=== PATIENT | male | born 1960 | race Two or more races ===

== ENCOUNTER → 2023-04-15 | Outpatient (CLI) | payer MEDICARE | LOC: M SLEEP 12:04 | PROVIDERS: ATTEND Family Medicine | DX: R55 Syncope and collapse (principal); R94.31 Abnormal electrocardiogram [ECG] [EKG] ==

== ENCOUNTER 2023-08-25 18:25 | Observation (INO) | payer MEDICAID, MEDICARE ==
[~2023-08-25] VITALS: Ht 188 cm; Wt 77.6 kg
[2023-08-25 19:38] LABS: BASO % 0.5 % (0.0-1.0); EOS % 0.7 % (0.0-3.0); HEMATOCRIT 38.9 % (42.0-52.0); HEMOGLOBIN 13.7 g/dl (13.5-17.5); LYMPH # 1.6 10^3/uL (1.5-5.0); LYMPH % 26.4 % (24.0-44.0); MEAN CORPUSCULAR HEMOGLOBIN 31.5 pg (27.0-33.0); MEAN CORPUSCULAR HGB CONC 35.2 g/dl (32.0-36.5); MEAN CORPUSCULAR VOLUME 89.4 fl (80.0-96.0); MONO # 0.5 10^3/uL (0.0-0.8); MONO % 8.3 % (2.0-8.0); NEUTROPHILS # 3.8 10^3/uL (1.5-8.5); NEUTROPHILS % 63.4 % (36.0-66.0); PLATELET COUNT, AUTOMATED 201 10^3/uL (150-450); RED BLOOD COUNT 4.35 10^6/uL (4.30-6.10)
[2023-08-25 19:50] LABS: CK-MB VALUE MASS 1.9 NG/ML (<3.6)
[2023-08-25 19:53] LABS: ALBUMIN 3.6 G/DL (3.2-5.2); ALKALINE PHOSPHATASE 72 U/L (46-116); ALT/SGPT 54 U/L (7.0-40); AST/SGOT 22 U/L (<34); BILIRUBIN,TOTAL 2.1 MG/DL (0.3-1.2); BLOOD UREA NITROGEN 16 MG/DL (9-23); CALCIUM LEVEL 9.4 MG/DL (8.3-10.6); CARBON DIOXIDE LEVEL 29 MMOL/L (20-31); CHLORIDE LEVEL 92 MMOL/L (98-107); CPK CREATINE PHOSPHOKINASE 102 U/L (46-171); CREATININE FOR GFR 0.69 MG/DL (0.70-1.30); GLOMERULAR FILTRATION RATE > 60.0 (>49); GLUCOSE, FASTING 173 MG/DL (74-106); MB/CK RELATIVE INDEX 1.86 (< OR =4); SODIUM LEVEL 126 MMOL/L (136-145); THYROID STIMULATING HORMONE 1.819 uIU/ML (0.55-4.78); TOTAL PROTEIN 6.7 G/DL (5.7-8.2)
[2023-08-26] MEDS ORDERED: NS 1,000 ML IV ONE (06:35)
[2023-08-26 06:51] LABS: AMPHETAMINES LEVEL URINE NEGATIVE (NEGATIVE); BARBITURATES URINE NEGATIVE (NEGATIVE); BENZODIAZEPINES URINE NEGATIVE (NEGATIVE); COCAINE METABOLITE URINE NEGATIVE (NEGATIVE)
[2023-08-26 06:52] LABS: CANNABINOIDS URINE NEGATIVE (NEGATIVE); METHADONE URINE NEGATIVE (NEGATIVE); OPIATES URINE NEGATIVE (NEGATIVE); PHENCYCLIDINE URINE NEGATIVE (NEGATIVE)
[2023-08-26] MEDS ORDERED: MED REC IN PROGRESS XX SCH (08:10)
[2023-08-26] MEDS ORDERED: VITA100093 PO (09:45)
[2023-08-26] MEDS ORDERED: TAMS1CAP17 PO (09:45)
[2023-08-26] MEDS ORDERED: ATOR1TAB19 PO (09:45)
[2023-08-26] MEDS ORDERED: HALOPERIDOL DECANOATE 100 MG/ML 1ML VIAL IM ONE (09:45)
[2023-08-26] MEDS ORDERED: TRAZ-257 PO (09:45)
[2023-08-26] MEDS ORDERED: HALO10AM IM (09:45)
[2023-08-26] MEDS ORDERED: LISI5TAB11 PO (09:45)
[2023-08-26] MEDS ORDERED: DIVA500T9 PO (09:45)
[2023-08-26] MEDS: ENOXAPARIN 40MG/0.4ML SYRINGE (J1650 PER 10MG) SC SCH (11:43)
[2023-08-26 12:17] LABS: BLOOD UREA NITROGEN 10 MG/DL (9-23); CALCIUM LEVEL 9.5 MG/DL (8.3-10.6); CARBON DIOXIDE LEVEL 24 MMOL/L (20-31); CHLORIDE LEVEL 101 MMOL/L (98-107); CREATININE FOR GFR 0.51 MG/DL (0.70-1.30); GLOMERULAR FILTRATION RATE > 60.0 (>49); GLUCOSE, FASTING 94 MG/DL (74-106); MAGNESIUM LEVEL 1.8 MG/DL (1.8-2.4); POTASSIUM SERUM 3.8 MMOL/L (3.5-5.1); SODIUM LEVEL 132 MMOL/L (136-145)
[2023-08-26 13:01] LABS: URIC ACID 4.8 MG/DL (3.7-9.2)
[2023-08-26 13:39] LABS: OSMOLALITY SERUM 265 MOSM/KG (280-301)
[2023-08-26 14:34] VITALS: BP 142/75; TEMP 97.5; O2SAT 100
[2023-08-26] MEDS ORDERED: CHOL50002 PO (15:08)
[2023-08-26] MEDS ORDERED: HOME MED LIST COMPLETE! XX SCH (15:10)
[2023-08-26] MEDS: ACETAMINOPHEN TAB 650MG DOSE (2X325MG) PO PRN (16:42)
[2023-08-26 18:00] LABS: BLOOD UREA NITROGEN 9 MG/DL (9-23); CALCIUM LEVEL 9.6 MG/DL (8.3-10.6); CARBON DIOXIDE LEVEL 26 MMOL/L (20-31); CHLORIDE LEVEL 100 MMOL/L (98-107); CREATININE FOR GFR 0.51 MG/DL (0.70-1.30); GLOMERULAR FILTRATION RATE > 60.0 (>49); GLUCOSE, FASTING 109 MG/DL (74-106); POTASSIUM SERUM 3.9 MMOL/L (3.5-5.1); SODIUM LEVEL 133 MMOL/L (136-145)
[2023-08-26 20:02] VITALS: BP 132/77; TEMP 98.6; O2SAT 99
[2023-08-26] MEDS: DIVALPROEX 500MG *ER* TAB PO SCH (20:54)
[2023-08-26] MEDS: traZODone 100 MG TAB PO SCH (20:54)
[2023-08-26] MEDS: TAMSULOSIN 0.4 MG CAP PO SCH (20:54)
[2023-08-26 23:34] LABS: BLOOD UREA NITROGEN 11 MG/DL (9-23); CALCIUM LEVEL 8.9 MG/DL (8.3-10.6); CARBON DIOXIDE LEVEL 23 MMOL/L (20-31); CHLORIDE LEVEL 101 MMOL/L (98-107); CREATININE FOR GFR 0.49 MG/DL (0.70-1.30); GLOMERULAR FILTRATION RATE > 60.0 (>49); GLUCOSE, FASTING 132 MG/DL (74-106); POTASSIUM SERUM 4.1 MMOL/L (3.5-5.1); SODIUM LEVEL 132 MMOL/L (136-145)
[2023-08-27 05:12] VITALS: BP 122/72; TEMP 98.6; O2SAT 100
[2023-08-27] MEDS: TAMSULOSIN 0.4 MG CAP PO SCH ×2 (09:05→20:15)
[2023-08-27] MEDS: ACETAMINOPHEN TAB 650MG DOSE (2X325MG) PO PRN ×2 (09:05→19:34)
[2023-08-27] MEDS: ATORVASTATIN 10 MG TAB PO SCH (09:05)
[2023-08-27] MEDS: DIVALPROEX 500MG *ER* TAB PO SCH ×2 (09:07→20:15)
[2023-08-27] MEDS: lisinopriL 5 MG TAB PO SCH (09:07)
[2023-08-27] MEDS: ENOXAPARIN 40MG/0.4ML SYRINGE (J1650 PER 10MG) SC SCH (09:07)
[2023-08-27 14:00] VITALS: BP 92/44; TEMP 98.8; O2SAT 99
[2023-08-27] MEDS ORDERED: NS 1,000 ML IV ONE (15:00)
[2023-08-27 19:30] VITALS: O2SAT 99
[2023-08-27 19:34] VITALS: BP 121/85; TEMP 97.9
[2023-08-27] MEDS: traZODone 100 MG TAB PO SCH (20:15)
[2023-08-28 05:07] VITALS: BP 126/67; TEMP 98.6; O2SAT 100
[2023-08-28 07:41] LABS: BLOOD UREA NITROGEN 11 MG/DL (9-23); CALCIUM LEVEL 8.5 MG/DL (8.3-10.6); CARBON DIOXIDE LEVEL 26 MMOL/L (20-31); CHLORIDE LEVEL 101 MMOL/L (98-107); CREATININE FOR GFR 0.62 MG/DL (0.70-1.30); GLOMERULAR FILTRATION RATE > 60.0 (>49); GLUCOSE, FASTING 96 MG/DL (74-106); MAGNESIUM LEVEL 1.7 MG/DL (1.8-2.4); POTASSIUM SERUM 3.9 MMOL/L (3.5-5.1); SODIUM LEVEL 133 MMOL/L (136-145)
[2023-08-28] MEDS: DIVALPROEX 500MG *ER* TAB PO SCH ×2 (08:17→19:51)
[2023-08-28] MEDS: ATORVASTATIN 10 MG TAB PO SCH (08:18)
[2023-08-28] MEDS: TAMSULOSIN 0.4 MG CAP PO SCH ×2 (08:18→19:51)
[2023-08-28] MEDS: ENOXAPARIN 40MG/0.4ML SYRINGE (J1650 PER 10MG) SC SCH (08:19)
[2023-08-28] MEDS: lisinopriL 5 MG TAB PO SCH (08:19)
[2023-08-28] MEDS: MAGNESIUM OXIDE 400MG TAB (MAG-OX) PO SCH (10:11)
[2023-08-28] MEDS ORDERED: HALOPERIDOL DECANOATE 100 MG/ML 1ML VIAL IM SCH (12:35)
[2023-08-28 14:00] VITALS: BP 126/71; TEMP 98.2; O2SAT 100
[2023-08-28 14:08] VITALS: BP 123/71; TEMP 98.4; O2SAT 98
[2023-08-28] MEDS: traZODone 100 MG TAB PO SCH (19:50)
[2023-08-28 20:46] VITALS: BP 115/70; TEMP 98.4; O2SAT 97
[2023-08-29 05:28] VITALS: BP 113/64; TEMP 98.1; O2SAT 98
[2023-08-29 06:31] LABS: BLOOD UREA NITROGEN 7 MG/DL (9-23); CALCIUM LEVEL 8.3 MG/DL (8.3-10.6); CARBON DIOXIDE LEVEL 28 MMOL/L (20-31); CHLORIDE LEVEL 101 MMOL/L (98-107); CREATININE FOR GFR 0.63 MG/DL (0.70-1.30); GLOMERULAR FILTRATION RATE > 60.0 (>49); GLUCOSE, FASTING 95 MG/DL (74-106); MAGNESIUM LEVEL 1.8 MG/DL (1.8-2.4); POTASSIUM SERUM 4.1 MMOL/L (3.5-5.1); SODIUM LEVEL 133 MMOL/L (136-145)
[2023-08-29] MEDS: TAMSULOSIN 0.4 MG CAP PO SCH ×2 (09:38→20:43)
[2023-08-29] MEDS: ENOXAPARIN 40MG/0.4ML SYRINGE (J1650 PER 10MG) SC SCH (09:38)
[2023-08-29] MEDS: ATORVASTATIN 10 MG TAB PO SCH (09:38)
[2023-08-29] MEDS: DIVALPROEX 500MG *ER* TAB PO SCH ×2 (09:39→20:42)
[2023-08-29] MEDS: MAGNESIUM OXIDE 400MG TAB (MAG-OX) PO SCH (09:39)
[2023-08-29] MEDS: lisinopriL 5 MG TAB PO SCH (09:39)
[2023-08-29] MEDS: ACETAMINOPHEN TAB 650MG DOSE (2X325MG) PO PRN (13:26)
[2023-08-29 14:00] VITALS: BP_SYST 125; BP_SYST 137; BP_DIAS 61; BP_DIAS 78; TEMP 97.9; TEMP 98.4; O2SAT 96; O2SAT 99
[2023-08-29] MEDS: MOM 30ML SUSPENSION UDC PO PRN (16:29)
[2023-08-29] MEDS: traZODone 100 MG TAB PO SCH (20:43)
[2023-08-29 21:00] VITALS: BP 128/74; TEMP 98.4; O2SAT 96
[2023-08-30 05:01] VITALS: BP 130/76; TEMP 97.9; O2SAT 99
[2023-08-30 06:43] LABS: BLOOD UREA NITROGEN 8 MG/DL (9-23); CARBON DIOXIDE LEVEL 30 MMOL/L (20-31); CHLORIDE LEVEL 102 MMOL/L (98-107); CREATININE FOR GFR 0.63 MG/DL (0.70-1.30); GLOMERULAR FILTRATION RATE > 60.0 (>49); GLUCOSE, FASTING 94 MG/DL (74-106); MAGNESIUM LEVEL 1.8 MG/DL (1.8-2.4); POTASSIUM SERUM 4.6 MMOL/L (3.5-5.1); SODIUM LEVEL 136 MMOL/L (136-145)
[2023-08-30 07:00] VITALS: BP 133/77; TEMP 97.9; O2SAT 99
[2023-08-30] MEDS: ATORVASTATIN 10 MG TAB PO SCH (08:15)
[2023-08-30] MEDS: ENOXAPARIN 40MG/0.4ML SYRINGE (J1650 PER 10MG) SC SCH (08:15)
[2023-08-30] MEDS: TAMSULOSIN 0.4 MG CAP PO SCH ×2 (08:15→20:41)
[2023-08-30] MEDS: lisinopriL 5 MG TAB PO SCH (08:16)
[2023-08-30] MEDS: MAGNESIUM OXIDE 400MG TAB (MAG-OX) PO SCH (08:16)
[2023-08-30] MEDS: DIVALPROEX 500MG *ER* TAB PO SCH ×2 (08:17→20:41)
[2023-08-30 14:00] VITALS: BP 137/78; TEMP 97.9; O2SAT 99
[2023-08-30 19:47] VITALS: BP 145/75; TEMP 98.1; O2SAT 99
[2023-08-30] MEDS: traZODone 100 MG TAB PO SCH (20:42)
[2023-08-31 05:12] VITALS: BP 142/77; TEMP 98.2; O2SAT 98
[2023-08-31 05:17] VITALS: BP 159/77; TEMP 97.5; O2SAT 94
[2023-08-31 06:52] LABS: BLOOD UREA NITROGEN 10 MG/DL (9-23); CARBON DIOXIDE LEVEL 30 MMOL/L (20-31); CHLORIDE LEVEL 102 MMOL/L (98-107); CREATININE FOR GFR 0.63 MG/DL (0.70-1.30); GLOMERULAR FILTRATION RATE > 60.0 (>49); GLUCOSE, FASTING 88 MG/DL (74-106); MAGNESIUM LEVEL 1.9 MG/DL (1.8-2.4); POTASSIUM SERUM 4.1 MMOL/L (3.5-5.1); SODIUM LEVEL 137 MMOL/L (136-145)
[2023-08-31] MEDS: ATORVASTATIN 10 MG TAB PO SCH (07:46)
[2023-08-31] MEDS: DIVALPROEX 500MG *ER* TAB PO SCH ×2 (07:47→19:56)
[2023-08-31] MEDS: TAMSULOSIN 0.4 MG CAP PO SCH ×2 (07:47→19:56)
[2023-08-31] MEDS: MAGNESIUM OXIDE 400MG TAB (MAG-OX) PO SCH (07:47)
[2023-08-31] MEDS: lisinopriL 5 MG TAB PO SCH (07:47)
[2023-08-31] MEDS: ENOXAPARIN 40MG/0.4ML SYRINGE (J1650 PER 10MG) SC SCH (07:48)
[2023-08-31 14:00] VITALS: BP 125/78; TEMP 98.2; O2SAT 99
[2023-08-31] MEDS: traZODone 100 MG TAB PO SCH (19:56)
[2023-09-01 05:15] VITALS: BP 124/74; TEMP 98.1; O2SAT 98
[2023-09-01 07:27] LABS: BLOOD UREA NITROGEN 9 MG/DL (9-23); CALCIUM LEVEL 9.1 MG/DL (8.3-10.6); CARBON DIOXIDE LEVEL 30 MMOL/L (20-31); CHLORIDE LEVEL 98 MMOL/L (98-107); CREATININE FOR GFR 0.61 MG/DL (0.70-1.30); GLOMERULAR FILTRATION RATE > 60.0 (>49); GLUCOSE, FASTING 89 MG/DL (74-106); MAGNESIUM LEVEL 1.7 MG/DL (1.8-2.4); POTASSIUM SERUM 4.4 MMOL/L (3.5-5.1); SODIUM LEVEL 131 MMOL/L (136-145)
[2023-09-01] MEDS: MAGNESIUM OXIDE 400MG TAB (MAG-OX) PO SCH (08:51)
[2023-09-01] MEDS: MAALOX 30 ML SUSP *UDC PO PRN (08:52)
[2023-09-01] MEDS: ACETAMINOPHEN TAB 650MG DOSE (2X325MG) PO PRN ×2 (08:52→15:54)
[2023-09-01] MEDS: TAMSULOSIN 0.4 MG CAP PO SCH ×2 (08:52→19:55)
[2023-09-01] MEDS: ATORVASTATIN 10 MG TAB PO SCH (08:52)
[2023-09-01] MEDS: ENOXAPARIN 40MG/0.4ML SYRINGE (J1650 PER 10MG) SC SCH (08:52)
[2023-09-01] MEDS: lisinopriL 5 MG TAB PO SCH (08:53)
[2023-09-01] MEDS: DIVALPROEX 500MG *ER* TAB PO SCH ×2 (08:53→19:55)
[2023-09-01 14:00] VITALS: BP 130/74; TEMP 98.2; O2SAT 98
[2023-09-01] MEDS: traZODone 100 MG TAB PO SCH (19:55)
[2023-09-02 06:00] VITALS: BP 133/68; TEMP 98; O2SAT 98
[2023-09-02 06:16] LABS: BLOOD UREA NITROGEN 8 MG/DL (9-23); CARBON DIOXIDE LEVEL 26 MMOL/L (20-31); CHLORIDE LEVEL 98 MMOL/L (98-107); CREATININE FOR GFR 0.51 MG/DL (0.70-1.30); GLOMERULAR FILTRATION RATE > 60.0 (>49); GLUCOSE, FASTING 93 MG/DL (74-106); MAGNESIUM LEVEL 1.7 MG/DL (1.8-2.4); POTASSIUM SERUM 4.4 MMOL/L (3.5-5.1); SODIUM LEVEL 130 MMOL/L (136-145)
[2023-09-02] MEDS: DIVALPROEX 500MG *ER* TAB PO SCH ×2 (08:22→20:02)
[2023-09-02] MEDS: TAMSULOSIN 0.4 MG CAP PO SCH ×2 (08:22→20:02)
[2023-09-02] MEDS: ATORVASTATIN 10 MG TAB PO SCH (08:23)
[2023-09-02] MEDS: lisinopriL 5 MG TAB PO SCH (08:23)
[2023-09-02] MEDS: ENOXAPARIN 40MG/0.4ML SYRINGE (J1650 PER 10MG) SC SCH (08:23)
[2023-09-02] MEDS: MAGNESIUM OXIDE 400MG TAB (MAG-OX) PO SCH (08:23)
[2023-09-02] MEDS: MOM 30ML SUSPENSION UDC PO PRN (20:02)
[2023-09-02] MEDS: traZODone 100 MG TAB PO SCH (20:02)
[2023-09-03 05:05] VITALS: BP 125/73; TEMP 98.6; O2SAT 99
[2023-09-03 06:57] LABS: BLOOD UREA NITROGEN 8 MG/DL (9-23); CALCIUM LEVEL 8.8 MG/DL (8.3-10.6); CARBON DIOXIDE LEVEL 26 MMOL/L (20-31); CHLORIDE LEVEL 96 MMOL/L (98-107); CREATININE FOR GFR 0.49 MG/DL (0.70-1.30); GLOMERULAR FILTRATION RATE > 60.0 (>49); GLUCOSE, FASTING 104 MG/DL (74-106); MAGNESIUM LEVEL 1.9 MG/DL (1.8-2.4); POTASSIUM SERUM 4.2 MMOL/L (3.5-5.1); SODIUM LEVEL 127 MMOL/L (136-145)
[2023-09-03] MEDS: TAMSULOSIN 0.4 MG CAP PO SCH ×2 (09:06→20:46)
[2023-09-03] MEDS: ATORVASTATIN 10 MG TAB PO SCH (09:06)
[2023-09-03] MEDS: MAGNESIUM OXIDE 400MG TAB (MAG-OX) PO SCH (09:06)
[2023-09-03] MEDS: DIVALPROEX 500MG *ER* TAB PO SCH ×2 (09:06→20:46)
[2023-09-03] MEDS: lisinopriL 5 MG TAB PO SCH (09:07)
[2023-09-03] MEDS: ENOXAPARIN 40MG/0.4ML SYRINGE (J1650 PER 10MG) SC SCH (09:07)
[2023-09-03 10:00] VITALS: BP 141/80; TEMP 97; O2SAT 98
[2023-09-03 13:19] LABS: BASO % 0.3 % (0.0-1.0); EOS % 0.4 % (0.0-3.0); HEMATOCRIT 38.3 % (42.0-52.0); HEMOGLOBIN 13.5 g/dl (13.5-17.5); LYMPH # 1.1 10^3/uL (1.5-5.0); LYMPH % 14.4 % (24.0-44.0); MEAN CORPUSCULAR HEMOGLOBIN 31.8 pg (27.0-33.0); MEAN CORPUSCULAR HGB CONC 35.2 g/dl (32.0-36.5); MEAN CORPUSCULAR VOLUME 90.3 fl (80.0-96.0); MONO # 0.6 10^3/uL (0.0-0.8); MONO % 7.8 % (2.0-8.0); NEUTROPHILS # 5.9 10^3/uL (1.5-8.5); NEUTROPHILS % 76.5 % (36.0-66.0); PLATELET COUNT, AUTOMATED 196 10^3/uL (150-450); RED BLOOD COUNT 4.24 10^6/uL (4.30-6.10); WHITE BLOOD COUNT 7.7 10^3/uL (4.0-10.0)
[2023-09-03 13:46] LABS: C REACTIVE PROTEIN QUANTITATIV < 0.40 MG/DL (<1.0)
[2023-09-03 13:55] LABS: PROCALCITONIN <0.04 ng/ml
[2023-09-03] MEDS: BACTRIM 160MG/800MG DS TAB PO SCH ×2 (13:58→20:49)
[2023-09-03] MEDS: SODIUM CHLORIDE 1 GM TAB PO SCH ×2 (13:58→16:56)
[2023-09-03 14:11] LABS: ERYTHROCYTE SEDIMENTATION RATE 13 mm/hr (0-20)
[2023-09-03] MEDS: ACETAMINOPHEN TAB 650MG DOSE (2X325MG) PO PRN ×2 (16:55→22:31)
[2023-09-03] MEDS ORDERED: PANTOPRAZOLE 40MG TAB (PROTONIX) PO ONE (18:10)
[2023-09-03] MEDS ORDERED: ONDANSETRON 4MG ORAL DISINTEGRATING TAB SL PRN (18:10)
[2023-09-03] MEDS ORDERED: MAALOX 30 ML SUSP *UDC PO ONE (18:10)
[2023-09-03] MEDS ORDERED: SUCRALFATE SUSP 1GM/10ML UD PO ONE (18:10)
[2023-09-03 19:26] LABS: LIPASE 48 U/L (12-53)
[2023-09-03 19:27] LABS: AMYLASE 93 U/L (30-118)
[2023-09-03 19:28] LABS: ALBUMIN 3.4 G/DL (3.2-5.2); ALKALINE PHOSPHATASE 108 U/L (46-116); ALT/SGPT 162 U/L (7.0-40); AST/SGOT 29 U/L (<34); BILIRUBIN,TOTAL 1.2 MG/DL (0.3-1.2); BLOOD UREA NITROGEN 12 MG/DL (9-23); CALCIUM LEVEL 8.9 MG/DL (8.3-10.6); CARBON DIOXIDE LEVEL 26 MMOL/L (20-31); CHLORIDE LEVEL 94 MMOL/L (98-107); CREATININE FOR GFR 0.56 MG/DL (0.70-1.30); GLOMERULAR FILTRATION RATE > 60.0 (>49); GLUCOSE, FASTING 119 MG/DL (74-106); POTASSIUM SERUM 4.2 MMOL/L (3.5-5.1); SODIUM LEVEL 126 MMOL/L (136-145); TOTAL PROTEIN 6.2 G/DL (5.7-8.2)
[2023-09-03] MEDS: traZODone 100 MG TAB PO SCH (20:46)
[2023-09-03] MEDS: SUCRALFATE SUSP 1GM/10ML UD PO SCH (20:46)
[2023-09-03] MEDS: BACITRACIN OINTMENT 30GM TUBE TOP SCH (20:47)
[2023-09-04 06:00] VITALS: BP 145/73; TEMP 98.8; O2SAT 98
[2023-09-04] MEDS: MAGNESIUM OXIDE 400MG TAB (MAG-OX) PO SCH (10:32)
[2023-09-04] MEDS: PANTOPRAZOLE 40MG TAB (PROTONIX) PO SCH (10:32)
[2023-09-04] MEDS: DIVALPROEX 500MG *ER* TAB PO SCH ×2 (10:32→21:35)
[2023-09-04] MEDS: TAMSULOSIN 0.4 MG CAP PO SCH ×2 (10:32→21:35)
[2023-09-04] MEDS: ATORVASTATIN 10 MG TAB PO SCH (10:33)
[2023-09-04] MEDS: lisinopriL 5 MG TAB PO SCH (10:33)
[2023-09-04] MEDS: BACTRIM 160MG/800MG DS TAB PO SCH ×2 (10:33→21:34)
[2023-09-04] MEDS: BACITRACIN OINTMENT 30GM TUBE TOP SCH ×2 (10:33→21:34)
[2023-09-04] MEDS: ENOXAPARIN 40MG/0.4ML SYRINGE (J1650 PER 10MG) SC SCH (10:33)
[2023-09-04] MEDS: SUCRALFATE SUSP 1GM/10ML UD PO SCH ×4 (10:34→21:35)
[2023-09-04] MEDS: SODIUM CHLORIDE 1 GM TAB PO SCH ×3 (10:36→18:14)
[2023-09-04] MEDS: KETOCONAZOLE 2% CREAM TOP SCH (21:00)
[2023-09-04] MEDS: traZODone 100 MG TAB PO SCH (21:35)
[2023-09-05 06:18] VITALS: BP 129/70; TEMP 98.4; O2SAT 98
[2023-09-05] MEDS: BACTRIM 160MG/800MG DS TAB PO SCH ×2 (08:35→20:44)
[2023-09-05] MEDS: ATORVASTATIN 10 MG TAB PO SCH (08:35)
[2023-09-05] MEDS: PANTOPRAZOLE 40MG TAB (PROTONIX) PO SCH (08:35)
[2023-09-05] MEDS: TAMSULOSIN 0.4 MG CAP PO SCH ×2 (08:35→20:44)
[2023-09-05] MEDS: lisinopriL 5 MG TAB PO SCH (08:35)
[2023-09-05] MEDS: DIVALPROEX 500MG *ER* TAB PO SCH ×2 (08:35→20:44)
[2023-09-05] MEDS: SODIUM CHLORIDE 1 GM TAB PO SCH ×3 (08:35→17:08)
[2023-09-05] MEDS: MAGNESIUM OXIDE 400MG TAB (MAG-OX) PO SCH (08:35)
[2023-09-05] MEDS: SUCRALFATE SUSP 1GM/10ML UD PO SCH ×4 (08:35→20:43)
[2023-09-05] MEDS: BACITRACIN OINTMENT 30GM TUBE TOP SCH ×2 (08:36→20:44)
[2023-09-05] MEDS: ENOXAPARIN 40MG/0.4ML SYRINGE (J1650 PER 10MG) SC SCH (08:36)
[2023-09-05] MEDS: KETOCONAZOLE 2% CREAM TOP SCH ×2 (10:15→20:40)
[2023-09-05 11:27] LABS: BLOOD UREA NITROGEN 10 MG/DL (9-23); CARBON DIOXIDE LEVEL 29 MMOL/L (20-31); CHLORIDE LEVEL 95 MMOL/L (98-107); CREATININE FOR GFR 0.74 MG/DL (0.70-1.30); GLOMERULAR FILTRATION RATE > 60.0 (>49); GLUCOSE, FASTING 98 MG/DL (74-106); POTASSIUM SERUM 4.4 MMOL/L (3.5-5.1); SODIUM LEVEL 128 MMOL/L (136-145)
[2023-09-05] MEDS: MAALOX 30 ML SUSP *UDC PO PRN (14:19)
[2023-09-05] MEDS ORDERED: SODIUM CHLORIDE 1 GM TAB PO SCH (18:00)
[2023-09-05] MEDS: traZODone 100 MG TAB PO SCH (20:44)
[2023-09-06 06:00] VITALS: BP 119/67; TEMP 98.6; O2SAT 96
[2023-09-06 06:32] LABS: BLOOD UREA NITROGEN 13 MG/DL (9-23); CARBON DIOXIDE LEVEL 27 MMOL/L (20-31); CHLORIDE LEVEL 98 MMOL/L (98-107); CREATININE FOR GFR 0.65 MG/DL (0.70-1.30); GLOMERULAR FILTRATION RATE > 60.0 (>49); GLUCOSE, FASTING 102 MG/DL (74-106); POTASSIUM SERUM 4.6 MMOL/L (3.5-5.1); SODIUM LEVEL 130 MMOL/L (136-145)
[2023-09-06] MEDS: SUCRALFATE SUSP 1GM/10ML UD PO SCH ×4 (07:30→19:57)
[2023-09-06] MEDS: KETOCONAZOLE 2% CREAM TOP SCH ×2 (09:36→19:58)
[2023-09-06] MEDS: ENOXAPARIN 40MG/0.4ML SYRINGE (J1650 PER 10MG) SC SCH (09:36)
[2023-09-06] MEDS: MAGNESIUM OXIDE 400MG TAB (MAG-OX) PO SCH (09:37)
[2023-09-06] MEDS: BACITRACIN OINTMENT 30GM TUBE TOP SCH ×2 (09:37→19:58)
[2023-09-06] MEDS: PANTOPRAZOLE 40MG TAB (PROTONIX) PO SCH (09:37)
[2023-09-06] MEDS: DIVALPROEX 500MG *ER* TAB PO SCH ×2 (09:37→19:57)
[2023-09-06] MEDS: lisinopriL 5 MG TAB PO SCH (09:37)
[2023-09-06] MEDS: ATORVASTATIN 10 MG TAB PO SCH (09:37)
[2023-09-06] MEDS: SODIUM CHLORIDE 1 GM TAB PO SCH ×2 (09:37→17:44)
[2023-09-06] MEDS: TAMSULOSIN 0.4 MG CAP PO SCH ×2 (09:38→19:57)
[2023-09-06] MEDS: BACTRIM 160MG/800MG DS TAB PO SCH ×2 (09:38→19:57)
[2023-09-06] MEDS: traZODone 100 MG TAB PO SCH (19:57)
[2023-09-07 06:00] VITALS: BP 145/80; TEMP 98.8; O2SAT 99
[2023-09-07 06:31] LABS: BLOOD UREA NITROGEN 14 MG/DL (9-23); CALCIUM LEVEL 9.1 MG/DL (8.3-10.6); CARBON DIOXIDE LEVEL 28 MMOL/L (20-31); CHLORIDE LEVEL 97 MMOL/L (98-107); CREATININE FOR GFR 0.74 MG/DL (0.70-1.30); GLOMERULAR FILTRATION RATE > 60.0 (>49); GLUCOSE, FASTING 95 MG/DL (74-106); POTASSIUM SERUM 4.6 MMOL/L (3.5-5.1); SODIUM LEVEL 128 MMOL/L (136-145)
[2023-09-07] MEDS: TAMSULOSIN 0.4 MG CAP PO SCH ×2 (08:58→19:49)
[2023-09-07] MEDS: ENOXAPARIN 40MG/0.4ML SYRINGE (J1650 PER 10MG) SC SCH (08:58)
[2023-09-07] MEDS: ATORVASTATIN 10 MG TAB PO SCH (08:58)
[2023-09-07] MEDS: PANTOPRAZOLE 40MG TAB (PROTONIX) PO SCH (08:58)
[2023-09-07] MEDS: MAGNESIUM OXIDE 400MG TAB (MAG-OX) PO SCH (08:58)
[2023-09-07] MEDS: BACTRIM 160MG/800MG DS TAB PO SCH ×2 (08:59→19:49)
[2023-09-07] MEDS: SUCRALFATE SUSP 1GM/10ML UD PO SCH ×4 (08:59→19:49)
[2023-09-07] MEDS: SODIUM CHLORIDE 1 GM TAB PO SCH ×2 (08:59→17:16)
[2023-09-07] MEDS: lisinopriL 5 MG TAB PO SCH (08:59)
[2023-09-07] MEDS: DIVALPROEX 500MG *ER* TAB PO SCH ×2 (09:00→19:49)
[2023-09-07] MEDS: KETOCONAZOLE 2% CREAM TOP SCH ×2 (09:01→19:48)
[2023-09-07] MEDS: BACITRACIN OINTMENT 30GM TUBE TOP SCH ×2 (09:01→19:48)
[2023-09-07] MEDS: ACETAMINOPHEN TAB 650MG DOSE (2X325MG) PO PRN (19:49)
[2023-09-07] MEDS: traZODone 100 MG TAB PO SCH (19:49)
[2023-09-08 05:30] VITALS: BP_SYST 101; BP_SYST 104; BP_DIAS 61; BP_DIAS 62; TEMP 98.6; O2SAT 98
[2023-09-08 06:34] LABS: BLOOD UREA NITROGEN 14 MG/DL (9-23); CALCIUM LEVEL 8.9 MG/DL (8.3-10.6); CARBON DIOXIDE LEVEL 26 MMOL/L (20-31); CHLORIDE LEVEL 96 MMOL/L (98-107); CREATININE FOR GFR 0.63 MG/DL (0.70-1.30); GLOMERULAR FILTRATION RATE > 60.0 (>49); GLUCOSE, FASTING 92 MG/DL (74-106); POTASSIUM SERUM 4.5 MMOL/L (3.5-5.1); SODIUM LEVEL 127 MMOL/L (136-145)
[2023-09-08 08:00] VITALS: BP 144/84; TEMP 98.1; O2SAT 97
[2023-09-08] MEDS: SUCRALFATE SUSP 1GM/10ML UD PO SCH ×4 (08:59→20:51)
[2023-09-08] MEDS: ATORVASTATIN 10 MG TAB PO SCH (08:59)
[2023-09-08] MEDS: BACTRIM 160MG/800MG DS TAB PO SCH ×2 (08:59→20:51)
[2023-09-08] MEDS: TAMSULOSIN 0.4 MG CAP PO SCH ×2 (08:59→20:51)
[2023-09-08] MEDS: lisinopriL 5 MG TAB PO SCH (09:00)
[2023-09-08] MEDS: DIVALPROEX 500MG *ER* TAB PO SCH ×2 (09:01→20:51)
[2023-09-08] MEDS: SODIUM CHLORIDE 1 GM TAB PO SCH ×2 (09:01→17:04)
[2023-09-08] MEDS: MAGNESIUM OXIDE 400MG TAB (MAG-OX) PO SCH (09:01)
[2023-09-08] MEDS: PANTOPRAZOLE 40MG TAB (PROTONIX) PO SCH (09:01)
[2023-09-08] MEDS: ENOXAPARIN 40MG/0.4ML SYRINGE (J1650 PER 10MG) SC SCH (09:02)
[2023-09-08] MEDS: KETOCONAZOLE 2% CREAM TOP SCH ×2 (09:03→20:52)
[2023-09-08] MEDS: BACITRACIN OINTMENT 30GM TUBE TOP SCH (09:03)
[2023-09-08] MEDS: ACETAMINOPHEN TAB 650MG DOSE (2X325MG) PO PRN (20:51)
[2023-09-08] MEDS: traZODone 100 MG TAB PO SCH (20:51)
[2023-09-09 06:00] VITALS: BP 106/61; TEMP 98.6; O2SAT 95
[2023-09-09 06:46] LABS: BLOOD UREA NITROGEN 21 MG/DL (9-23); CALCIUM LEVEL 9.2 MG/DL (8.3-10.6); CARBON DIOXIDE LEVEL 28 MMOL/L (20-31); CHLORIDE LEVEL 97 MMOL/L (98-107); CREATININE FOR GFR 0.77 MG/DL (0.70-1.30); GLOMERULAR FILTRATION RATE > 60.0 (>49); GLUCOSE, FASTING 92 MG/DL (74-106); POTASSIUM SERUM 4.7 MMOL/L (3.5-5.1); SODIUM LEVEL 131 MMOL/L (136-145)
[2023-09-09] MEDS: SUCRALFATE SUSP 1GM/10ML UD PO SCH ×4 (09:45→20:18)
[2023-09-09] MEDS: ENOXAPARIN 40MG/0.4ML SYRINGE (J1650 PER 10MG) SC SCH (09:45)
[2023-09-09] MEDS: PANTOPRAZOLE 40MG TAB (PROTONIX) PO SCH (09:46)
[2023-09-09] MEDS: TAMSULOSIN 0.4 MG CAP PO SCH ×2 (09:46→20:18)
[2023-09-09] MEDS: MAGNESIUM OXIDE 400MG TAB (MAG-OX) PO SCH (09:46)
[2023-09-09] MEDS: BACTRIM 160MG/800MG DS TAB PO SCH ×2 (09:46→20:19)
[2023-09-09] MEDS: KETOCONAZOLE 2% CREAM TOP SCH ×2 (09:46→20:19)
[2023-09-09] MEDS: SODIUM CHLORIDE 1 GM TAB PO SCH ×2 (09:46→16:52)
[2023-09-09] MEDS: lisinopriL 5 MG TAB PO SCH (09:46)
[2023-09-09] MEDS: DIVALPROEX 500MG *ER* TAB PO SCH ×2 (09:46→20:18)
[2023-09-09] MEDS: ATORVASTATIN 10 MG TAB PO SCH (09:47)
[2023-09-09] MEDS: traZODone 100 MG TAB PO SCH (20:18)
[2023-09-09 22:00] VITALS: BP 126/80; TEMP 99.1; O2SAT 99
[2023-09-10 05:28] VITALS: BP 104/55; TEMP 98.6; O2SAT 98
[2023-09-10 06:50] LABS: BLOOD UREA NITROGEN 16 MG/DL (9-23); CALCIUM LEVEL 9.1 MG/DL (8.3-10.6); CARBON DIOXIDE LEVEL 27 MMOL/L (20-31); CHLORIDE LEVEL 100 MMOL/L (98-107); CREATININE FOR GFR 0.66 MG/DL (0.70-1.30); GLOMERULAR FILTRATION RATE > 60.0 (>49); GLUCOSE, FASTING 95 MG/DL (74-106); POTASSIUM SERUM 4.5 MMOL/L (3.5-5.1); SODIUM LEVEL 133 MMOL/L (136-145)
[2023-09-10] MEDS: ENOXAPARIN 40MG/0.4ML SYRINGE (J1650 PER 10MG) SC SCH (08:46)
[2023-09-10] MEDS: DIVALPROEX 500MG *ER* TAB PO SCH ×2 (08:47→20:51)
[2023-09-10] MEDS: SUCRALFATE SUSP 1GM/10ML UD PO SCH ×4 (08:47→20:51)
[2023-09-10] MEDS: SODIUM CHLORIDE 1 GM TAB PO SCH ×2 (08:47→17:07)
[2023-09-10] MEDS: TAMSULOSIN 0.4 MG CAP PO SCH ×2 (08:47→20:51)
[2023-09-10] MEDS: lisinopriL 5 MG TAB PO SCH (08:48)
[2023-09-10] MEDS: ATORVASTATIN 10 MG TAB PO SCH (08:48)
[2023-09-10] MEDS: MAGNESIUM OXIDE 400MG TAB (MAG-OX) PO SCH (08:48)
[2023-09-10] MEDS: PANTOPRAZOLE 40MG TAB (PROTONIX) PO SCH (08:49)
[2023-09-10] MEDS: KETOCONAZOLE 2% CREAM TOP SCH ×2 (08:49→20:52)
[2023-09-10 14:00] VITALS: BP 130/83; TEMP 98.8; O2SAT 99
[2023-09-10] MEDS: MAALOX 30 ML SUSP *UDC PO PRN (14:14)
[2023-09-10] MEDS: traZODone 100 MG TAB PO SCH (20:51)
[2023-09-10] MEDS: CLOBETASOL PROPIONATE EMOLLIENT 0.05% CR 60 GM TOP SCH (21:08)
[2023-09-10] MEDS: CALCIPOTRIENE CREAM 0.005% 60GM TOP SCH (21:09)
[2023-09-10 21:58] VITALS: BP 158/90; TEMP 98.2; O2SAT 96
[2023-09-11 06:00] VITALS: BP 103/56; TEMP 98.8; O2SAT 99
[2023-09-11] MEDS: ENOXAPARIN 40MG/0.4ML SYRINGE (J1650 PER 10MG) SC SCH (08:50)
[2023-09-11] MEDS: SUCRALFATE SUSP 1GM/10ML UD PO SCH ×4 (08:51→19:51)
[2023-09-11] MEDS: ATORVASTATIN 10 MG TAB PO SCH (08:55)
[2023-09-11] MEDS: PANTOPRAZOLE 40MG TAB (PROTONIX) PO SCH (08:55)
[2023-09-11] MEDS: TAMSULOSIN 0.4 MG CAP PO SCH ×2 (08:55→19:51)
[2023-09-11] MEDS: MAGNESIUM OXIDE 400MG TAB (MAG-OX) PO SCH (08:55)
[2023-09-11] MEDS: SODIUM CHLORIDE 1 GM TAB PO SCH ×2 (08:55→17:34)
[2023-09-11] MEDS: DIVALPROEX 500MG *ER* TAB PO SCH ×2 (08:55→19:52)
[2023-09-11] MEDS: CALCIPOTRIENE CREAM 0.005% 60GM TOP SCH ×2 (08:56→19:52)
[2023-09-11] MEDS: KETOCONAZOLE 2% CREAM TOP SCH (08:56)
[2023-09-11] MEDS: CLOBETASOL PROPIONATE EMOLLIENT 0.05% CR 60 GM TOP SCH ×2 (08:56→19:52)
[2023-09-11] MEDS: lisinopriL 5 MG TAB PO SCH (08:57)
[2023-09-11] MEDS: MOM 30ML SUSPENSION UDC PO PRN (18:11)
[2023-09-11] MEDS: traZODone 100 MG TAB PO SCH (19:52)
[2023-09-12 06:00] VITALS: BP 110/66; TEMP 97.9; O2SAT 94
[2023-09-12] MEDS: SUCRALFATE SUSP 1GM/10ML UD PO SCH ×4 (08:08→20:24)
[2023-09-12] MEDS: ATORVASTATIN 10 MG TAB PO SCH (08:09)
[2023-09-12] MEDS: SODIUM CHLORIDE 1 GM TAB PO SCH ×2 (08:09→17:12)
[2023-09-12] MEDS: MAGNESIUM OXIDE 400MG TAB (MAG-OX) PO SCH (08:09)
[2023-09-12] MEDS: DIVALPROEX 500MG *ER* TAB PO SCH ×2 (08:09→20:24)
[2023-09-12] MEDS: TAMSULOSIN 0.4 MG CAP PO SCH ×2 (08:09→20:24)
[2023-09-12] MEDS: PANTOPRAZOLE 40MG TAB (PROTONIX) PO SCH (08:09)
[2023-09-12] MEDS: CLOBETASOL PROPIONATE EMOLLIENT 0.05% CR 60 GM TOP SCH ×2 (08:10→20:25)
[2023-09-12] MEDS: ENOXAPARIN 40MG/0.4ML SYRINGE (J1650 PER 10MG) SC SCH (08:10)
[2023-09-12] MEDS: CALCIPOTRIENE CREAM 0.005% 60GM TOP SCH ×2 (08:11→20:25)
[2023-09-12] MEDS: lisinopriL 5 MG TAB PO SCH (08:11)
[2023-09-12] MEDS ORDERED: PANT40TA29 PO (10:04)
[2023-09-12] MEDS ORDERED: CLOB5CR TOP (10:04)
[2023-09-12] MEDS ORDERED: CALC0.009 TOP (10:04)
[2023-09-12] MEDS ORDERED: MAGN400T2 PO (10:04)
[2023-09-12 15:29] LABS: BLOOD UREA NITROGEN 20 MG/DL (9-23); CALCIUM LEVEL 8.8 MG/DL (8.3-10.6); CARBON DIOXIDE LEVEL 28 MMOL/L (20-31); CHLORIDE LEVEL 106 MMOL/L (98-107); CREATININE FOR GFR 0.69 MG/DL (0.70-1.30); GLOMERULAR FILTRATION RATE > 60.0 (>49); GLUCOSE, FASTING 117 MG/DL (74-106); POTASSIUM SERUM 4.3 MMOL/L (3.5-5.1); SODIUM LEVEL 139 MMOL/L (136-145)
[2023-09-12] MEDS: traZODone 100 MG TAB PO SCH (20:24)
[2023-09-13 06:00] VITALS: BP 93/52; TEMP 98.4; O2SAT 92
[2023-09-13] MEDS: PANTOPRAZOLE 40MG TAB (PROTONIX) PO SCH (08:39)
[2023-09-13] MEDS: MAGNESIUM OXIDE 400MG TAB (MAG-OX) PO SCH ×2 (08:39→20:52)
[2023-09-13] MEDS: ENOXAPARIN 40MG/0.4ML SYRINGE (J1650 PER 10MG) SC SCH (08:39)
[2023-09-13] MEDS: SODIUM CHLORIDE 1 GM TAB PO SCH ×2 (08:39→18:43)
[2023-09-13] MEDS: SUCRALFATE SUSP 1GM/10ML UD PO SCH ×4 (08:39→20:50)
[2023-09-13] MEDS: ATORVASTATIN 10 MG TAB PO SCH (08:40)
[2023-09-13] MEDS: DIVALPROEX 500MG *ER* TAB PO SCH ×2 (08:40→20:51)
[2023-09-13] MEDS: TAMSULOSIN 0.4 MG CAP PO SCH ×2 (08:40→20:51)
[2023-09-13] MEDS: CALCIPOTRIENE CREAM 0.005% 60GM TOP SCH (08:41)
[2023-09-13] MEDS: CLOBETASOL PROPIONATE EMOLLIENT 0.05% CR 60 GM TOP SCH (08:41)
[2023-09-13] MEDS: lisinopriL 5 MG TAB PO SCH (08:42)
[2023-09-13] MEDS ORDERED: CLOT1CRE56 TOP (08:55)
[2023-09-13] MEDS: CLOTRIMAZOLE 1% TOPICAL CREAM 30GM TOP SCH ×2 (09:52→20:52)
[2023-09-13 11:20] LABS: BASO % 0.4 % (0.0-1.0); EOS # 0.1 10^3/uL (0.0-0.5); EOS % 1.8 % (0.0-3.0); HEMOGLOBIN 12.6 g/dl (13.5-17.5); LYMPH # 1.5 10^3/uL (1.5-5.0); MEAN CORPUSCULAR HEMOGLOBIN 32.1 pg (27.0-33.0); MEAN CORPUSCULAR VOLUME 91.8 fl (80.0-96.0); MONO # 0.5 10^3/uL (0.0-0.8); MONO % 10.5 % (2.0-8.0); NEUTROPHILS # 2.8 10^3/uL (1.5-8.5); NEUTROPHILS % 56.5 % (36.0-66.0); PLATELET COUNT, AUTOMATED 208 10^3/uL (150-450); RED BLOOD COUNT 3.92 10^6/uL (4.30-6.10); WHITE BLOOD COUNT 4.9 10^3/uL (4.0-10.0)
[2023-09-13 11:43] LABS: C REACTIVE PROTEIN QUANTITATIV < 0.40 MG/DL (<1.0); ERYTHROCYTE SEDIMENTATION RATE 11 mm/hr (0-20)
[2023-09-13 11:45] LABS: ALBUMIN 3.1 G/DL (3.2-5.2); ALKALINE PHOSPHATASE 66 U/L (46-116); ALT/SGPT 64 U/L (7.0-40); AST/SGOT 19 U/L (<34); BILIRUBIN,TOTAL 1.5 MG/DL (0.3-1.2); BLOOD UREA NITROGEN 17 MG/DL (9-23); CALCIUM LEVEL 9.3 MG/DL (8.3-10.6); CARBON DIOXIDE LEVEL 26 MMOL/L (20-31); CHLORIDE LEVEL 105 MMOL/L (98-107); CREATININE FOR GFR 0.64 MG/DL (0.70-1.30); GLOMERULAR FILTRATION RATE > 60.0 (>49); GLUCOSE, FASTING 102 MG/DL (74-106); POTASSIUM SERUM 4.2 MMOL/L (3.5-5.1); SODIUM LEVEL 136 MMOL/L (136-145); TOTAL PROTEIN 6.1 G/DL (5.7-8.2)
[2023-09-13 13:15] LABS: PROCALCITONIN <0.04 ng/ml
[2023-09-13] MEDS ORDERED: MAG SULF 1GM/100ML (MAG RUN) 1 GM in IV 1 EA IV ONE (17:10)
[2023-09-13 18:44] LABS: MAGNESIUM LEVEL 1.8 MG/DL (1.8-2.4)
[2023-09-13] MEDS: ACETAMINOPHEN TAB 650MG DOSE (2X325MG) PO PRN (19:21)
[2023-09-13] MEDS: traZODone 100 MG TAB PO SCH (20:51)
[2023-09-14 05:21] VITALS: BP 136/78; TEMP 98.6; O2SAT 98
[2023-09-14] MEDS: SUCRALFATE SUSP 1GM/10ML UD PO SCH ×2 (08:35→12:23)
[2023-09-14] MEDS: TAMSULOSIN 0.4 MG CAP PO SCH (08:36)
[2023-09-14] MEDS: MAGNESIUM OXIDE 400MG TAB (MAG-OX) PO SCH (08:36)
[2023-09-14] MEDS: DIVALPROEX 500MG *ER* TAB PO SCH (08:36)
[2023-09-14] MEDS: PANTOPRAZOLE 40MG TAB (PROTONIX) PO SCH (08:36)
[2023-09-14 08:37] VITALS: BP 136/79
[2023-09-14] MEDS: SODIUM CHLORIDE 1 GM TAB PO SCH (08:37)
[2023-09-14] MEDS: ATORVASTATIN 10 MG TAB PO SCH (08:37)
[2023-09-14] MEDS: lisinopriL 5 MG TAB PO SCH (08:37)
[2023-09-14] MEDS: ENOXAPARIN 40MG/0.4ML SYRINGE (J1650 PER 10MG) SC SCH (08:37)
[2023-09-14] MEDS: CLOTRIMAZOLE 1% TOPICAL CREAM 30GM TOP SCH (08:38)
[2023-09-16] MEDS ORDERED: HALOPERIDOL DECANOATE 100 MG/ML 1ML VIAL IM SCH (09:00)
== END 2023-09-14 14:50 | disposition home or self-care (01) ==
LOC: M ED 18:25 → M ED INP 08-26 10:54 → ENRESERV 08-26 13:29 → M MSPAV 08-26 14:30
PROVIDERS: ADMIT Student in an Organized Health Care Education/Training Program; ATTEND General Practice
DX: E87.1 Hypo-osmolality and hyponatremia (principal); R29.6 Repeated falls; R54 Age-related physical debility; M25.511 Pain in right shoulder; I10 Essential (primary) hypertension; F25.9 Schizoaffective disorder, unspecified; Z79.899 Other long term (current) drug therapy; E78.5 Hyperlipidemia, unspecified
CPT/HCPCS: 36415; 70450; 71046; 73010; 80048; 80053; 80076; 80307; 81001; 82140; 82150; 82533; 82550; 82553; 83605; 83690; 83735; 83930; 84145; 84443; 84484; 84550; 85025; 85652; 86140; 87040; 87486; 87581; 87633; 87641; 87798; 93005; 97110; 97116; 97161; 97165; 97530; 97535; 99285; G0378; J1631; J1650

== ENCOUNTER → 2023-09-15 | Outpatient (REF) | payer MEDICARE ==
[~2023-09-15] MED LIST: ATOR1TAB19 PO; CALC0.009 TOP; CHOL50002 PO; CLOB5CR TOP; CLOT1CRE56 TOP; DIVA500T9 PO; HALO10AM IM; LISI5TAB11 PO; MAGN400T2 PO; PANT40TA29 PO; TAMS1CAP17 PO; TRAZ-257 PO; VITA100093 PO
== END ==
LOC: M SFHCDERM 12:22
PROVIDERS: ATTEND Physician Assistant
DX: T14.8XXA Other injury of unspecified body region, initial encounter (principal)

== ENCOUNTER → 2024-02-17 | Outpatient (CLI) | payer MEDICARE, MEDICAID ==
[~2024-02-17] MED LIST changes: +CALC0.0017 TOP; -CALC0.009 TOP
== END ==
LOC: M RAD 06:53
PROVIDERS: ATTEND Family Medicine
DX: R94.5 Abnormal results of liver function studies (principal)

== ENCOUNTER 2024-10-03 22:17 | Inpatient (IN) | payer MEDICARE, MEDICAID ==
[~2024-10-03] VITALS: Ht 188 cm; Wt 82.3 kg
[2024-10-03 22:56] LABS: BASO % 0.1 % (0.0-1.0); HEMATOCRIT 39.4 % (42.0-52.0); HEMOGLOBIN 14.4 g/dl (13.5-17.5); LYMPH # 0.4 10^3/uL (1.5-5.0); LYMPH % 3.1 % (24.0-44.0); MEAN CORPUSCULAR HEMOGLOBIN 31.8 pg (27.0-33.0); MEAN CORPUSCULAR HGB CONC 36.5 g/dl (32.0-36.5); MONO # 0.9 10^3/uL (0.0-0.8); MONO % 7.3 % (2.0-8.0); NEUTROPHILS % 88.8 % (36.0-66.0); PLATELET COUNT, AUTOMATED 171 10^3/uL (150-450); RED BLOOD COUNT 4.53 10^6/uL (4.30-6.10); WHITE BLOOD COUNT 12.4 10^3/uL (4.0-10.0)
[2024-10-03 23:16] LABS: CK-MB VALUE MASS 10.8 NG/ML (<3.6)
[2024-10-03 23:18] LABS: CPK CREATINE PHOSPHOKINASE 1212 U/L (46-171); MB/CK RELATIVE INDEX 0.89 (< OR =4)
[2024-10-03 23:19] LABS: ALBUMIN 3.7 G/DL (3.2-5.2); ALKALINE PHOSPHATASE 67 U/L (40-129); ALT/SGPT 30 U/L (7.0-40); AST/SGOT 28 U/L (<34); BILIRUBIN,TOTAL 2.1 MG/DL (0.3-1.2); BLOOD UREA NITROGEN 21 MG/DL (9-23); CALCIUM LEVEL 10.5 MG/DL (8.3-10.6); CARBON DIOXIDE LEVEL 23 MMOL/L (20-31); CHLORIDE LEVEL 91 MMOL/L (98-107); CREATININE FOR GFR 0.79 MG/DL (0.70-1.30); GLOMERULAR FILTRATION RATE > 60.0 (>49); GLUCOSE, FASTING 101 MG/DL (74-106); POTASSIUM SERUM 4.5 MMOL/L (3.5-5.1); SODIUM LEVEL 125 MMOL/L (136-145); TOTAL PROTEIN 7.2 G/DL (5.7-8.2)
[2024-10-03 23:20] LABS: THYROID STIMULATING HORMONE 2.115 uIU/ML (0.55-4.78)
[2024-10-04] MEDS ORDERED: MAALOX 30 ML SUSP *UDC PO PRN (05:25)
[2024-10-04 05:50] VITALS: BP 130/57; TEMP 97.9; O2SAT 98
[2024-10-04 06:05] LABS: INR 1.12; PROTHROMBIN TIME 14.7 SECONDS (12.5-14.5)
[2024-10-04 06:23] VITALS: O2SAT 96
[2024-10-04] MEDS: NS 1,000 ML IV SCH (06:38)
[2024-10-04 08:00] VITALS: BP 130/58; TEMP 97.9; O2SAT 95
[2024-10-04 09:46] LABS: BLOOD UREA NITROGEN 20 MG/DL (9-23); CALCIUM LEVEL 9.7 MG/DL (8.3-10.6); CARBON DIOXIDE LEVEL 22 MMOL/L (20-31); CHLORIDE LEVEL 95 MMOL/L (98-107); CREATININE FOR GFR 0.65 MG/DL (0.70-1.30); GLOMERULAR FILTRATION RATE > 60.0 (>49); GLUCOSE, FASTING 104 MG/DL (74-106); POTASSIUM SERUM 3.9 MMOL/L (3.5-5.1); SODIUM LEVEL 126 MMOL/L (136-145)
[2024-10-04] MEDS: DOCUSATE SODIUM 100MG CAPSULE PO SCH (09:52)
[2024-10-04] MEDS ORDERED: PANT40TA29 PO (11:20)
[2024-10-04] MEDS ORDERED: HOME MED LIST COMPLETE! XX SCH (11:25)
[2024-10-04 12:00] VITALS: BP 126/76; TEMP 97.7; O2SAT 97
[2024-10-04] MEDS: ENOXAPARIN 40MG/0.4ML SYRINGE (J1650 PER 10MG) SC SCH (14:26)
[2024-10-04] MEDS: ACETAMINOPHEN 325 MG TAB PO PRN (14:26)
[2024-10-04 15:45] LABS: BLOOD UREA NITROGEN 18 MG/DL (9-23); CALCIUM LEVEL 9.5 MG/DL (8.3-10.6); CARBON DIOXIDE LEVEL 25 MMOL/L (20-31); CHLORIDE LEVEL 97 MMOL/L (98-107); CREATININE FOR GFR 0.69 MG/DL (0.70-1.30); GLOMERULAR FILTRATION RATE > 60.0 (>49); GLUCOSE, FASTING 112 MG/DL (74-106); POTASSIUM SERUM 3.6 MMOL/L (3.5-5.1); SODIUM LEVEL 127 MMOL/L (136-145)
[2024-10-04 16:00] VITALS: BP 152/80; TEMP 97.9; O2SAT 98
[2024-10-04 17:44] LABS: OSMOLALITY URINE 220 MOSM/KG (50-1400)
[2024-10-04 17:45] LABS: SODIUM,RANDOM URINE < 10 MMOL/L
[2024-10-04 19:56] VITALS: BP 146/69; TEMP 97.7; O2SAT 100
[2024-10-04] MEDS: TAMSULOSIN 0.4 MG CAP PO SCH (20:29)
[2024-10-04] MEDS: ATORVASTATIN 10 MG TAB PO SCH (20:29)
[2024-10-04] MEDS: traZODone 100 MG TAB PO SCH (20:30)
[2024-10-04] MEDS: PANTOPRAZOLE 40MG TAB (PROTONIX) PO SCH (20:30)
[2024-10-04] MEDS: DIVALPROEX 500MG *ER* TAB PO SCH (20:30)
[2024-10-04] MEDS: lisinopriL 5 MG TAB PO SCH (20:30)
[2024-10-05] VITALS (7 sets, daily range): BP systolic 100–138; BP diastolic 47–76; TEMP 97.3–97.9; O2SAT 91–99
[2024-10-05 06:14] LABS: BASO % 0.2 % (0.0-1.0); EOS % 0.6 % (0.0-3.0); HEMATOCRIT 39.7 % (42.0-52.0); LYMPH # 1.5 10^3/uL (1.5-5.0); LYMPH % 27.2 % (24.0-44.0); MEAN CORPUSCULAR HEMOGLOBIN 31.3 pg (27.0-33.0); MEAN CORPUSCULAR HGB CONC 35.3 g/dl (32.0-36.5); MEAN CORPUSCULAR VOLUME 88.8 fl (80.0-96.0); MONO # 0.6 10^3/uL (0.0-0.8); MONO % 11.6 % (2.0-8.0); NEUTROPHILS # 3.3 10^3/uL (1.5-8.5); NEUTROPHILS % 59.8 % (36.0-66.0); PLATELET COUNT, AUTOMATED 156 10^3/uL (150-450); RED BLOOD COUNT 4.47 10^6/uL (4.30-6.10); WHITE BLOOD COUNT 5.4 10^3/uL (4.0-10.0)
[2024-10-05 06:52] LABS: ALBUMIN 3.1 G/DL (3.2-5.2); ALKALINE PHOSPHATASE 64 U/L (40-129); ALT/SGPT 35 U/L (7.0-40); AST/SGOT 57 U/L (<34); BILIRUBIN,TOTAL 1.9 MG/DL (0.3-1.2); BLOOD UREA NITROGEN 13 MG/DL (9-23); CALCIUM LEVEL 9.5 MG/DL (8.3-10.6); CARBON DIOXIDE LEVEL 24 MMOL/L (20-31); CHLORIDE LEVEL 101 MMOL/L (98-107); CREATININE FOR GFR 0.64 MG/DL (0.70-1.30); GLOMERULAR FILTRATION RATE > 60.0 (>49); GLUCOSE, FASTING 111 MG/DL (74-106); MAGNESIUM LEVEL 2.1 MG/DL (1.8-2.4); POTASSIUM SERUM 3.9 MMOL/L (3.5-5.1); SODIUM LEVEL 131 MMOL/L (136-145); TOTAL PROTEIN 6.6 G/DL (5.7-8.2)
[2024-10-06] VITALS: BP 115/79; TEMP 98.1; O2SAT 100
[2024-10-06 04:44] VITALS: BP 150/84; TEMP 97.7; O2SAT 94
[2024-10-06 06:44] LABS: BLOOD UREA NITROGEN 14 MG/DL (9-23); CALCIUM LEVEL 9.4 MG/DL (8.3-10.6); CARBON DIOXIDE LEVEL 26 MMOL/L (20-31); CHLORIDE LEVEL 101 MMOL/L (98-107); CREATININE FOR GFR 0.68 MG/DL (0.70-1.30); GLOMERULAR FILTRATION RATE > 60.0 (>49); GLUCOSE, FASTING 103 MG/DL (74-106); MAGNESIUM LEVEL 1.9 MG/DL (1.8-2.4); POTASSIUM SERUM 3.9 MMOL/L (3.5-5.1); SODIUM LEVEL 134 MMOL/L (136-145)
[2024-10-06 08:00] VITALS: BP 132/86; TEMP 98.1; O2SAT 96
[2024-10-06 20:00] VITALS: BP 143/108; TEMP 97.9; O2SAT 98
[2024-10-07 04:00] VITALS: BP 109/63; TEMP 97.7; O2SAT 93
[2024-10-07 06:21] LABS: HEMATOCRIT 36.4 % (42.0-52.0); HEMOGLOBIN 12.7 g/dl (13.5-17.5); MEAN CORPUSCULAR HEMOGLOBIN 31.6 pg (27.0-33.0); MEAN CORPUSCULAR HGB CONC 34.9 g/dl (32.0-36.5); MEAN CORPUSCULAR VOLUME 90.5 fl (80.0-96.0); PLATELET COUNT, AUTOMATED 158 10^3/uL (150-450); RED BLOOD COUNT 4.02 10^6/uL (4.30-6.10); WHITE BLOOD COUNT 5.2 10^3/uL (4.0-10.0)
[2024-10-07 06:48] LABS: BLOOD UREA NITROGEN 16 MG/DL (9-23); CARBON DIOXIDE LEVEL 27 MMOL/L (20-31); CHLORIDE LEVEL 103 MMOL/L (98-107); CREATININE FOR GFR 0.71 MG/DL (0.70-1.30); GLOMERULAR FILTRATION RATE > 60.0 (>49); GLUCOSE, FASTING 93 MG/DL (74-106); MAGNESIUM LEVEL 1.8 MG/DL (1.8-2.4); POTASSIUM SERUM 3.9 MMOL/L (3.5-5.1); SODIUM LEVEL 135 MMOL/L (136-145)
[2024-10-07] MEDS: MOM 30ML SUSPENSION UDC PO PRN (08:22)
[2024-10-07 13:45] VITALS: BP 160/84; TEMP 98.2; O2SAT 92
[2024-10-07 14:18] VITALS: BP 131/69
[2024-10-07 20:06] VITALS: BP 139/84; TEMP 97.7; O2SAT 94
[2024-10-08 04:20] VITALS: BP 140/84; TEMP 97.7; O2SAT 99
[2024-10-08 05:45] LABS: BLOOD UREA NITROGEN 12 MG/DL (9-23); CALCIUM LEVEL 9.2 MG/DL (8.3-10.6); CARBON DIOXIDE LEVEL 28 MMOL/L (20-31); CHLORIDE LEVEL 102 MMOL/L (98-107); CREATININE FOR GFR 0.63 MG/DL (0.70-1.30); GLOMERULAR FILTRATION RATE > 60.0 (>49); GLUCOSE, FASTING 88 MG/DL (74-106); POTASSIUM SERUM 4.1 MMOL/L (3.5-5.1); SODIUM LEVEL 134 MMOL/L (136-145)
[2024-10-08 12:00] VITALS: BP 128/75; TEMP 97.7; O2SAT 98
[2024-10-08 20:00] VITALS: BP 134/78; TEMP 97.7; O2SAT 100
[2024-10-08 21:09] VITALS: BP 128/75
[2024-10-09 04:00] VITALS: BP 116/67; TEMP 97.7; O2SAT 97
[2024-10-09 05:10] LABS: BLOOD UREA NITROGEN 13 MG/DL (9-23); CALCIUM LEVEL 9.2 MG/DL (8.3-10.6); CARBON DIOXIDE LEVEL 27 MMOL/L (20-31); CHLORIDE LEVEL 101 MMOL/L (98-107); CREATININE FOR GFR 0.61 MG/DL (0.70-1.30); GLOMERULAR FILTRATION RATE > 60.0 (>49); GLUCOSE, FASTING 92 MG/DL (74-106); POTASSIUM SERUM 4.2 MMOL/L (3.5-5.1); SODIUM LEVEL 133 MMOL/L (136-145)
[2024-10-09 12:00] VITALS: BP 127/75; TEMP 97.5; O2SAT 98
[2024-10-15] MEDS ORDERED: HALOPERIDOL DECANOATE 100 MG/ML 1ML VIAL IM SCH (09:00)
== END 2024-10-09 13:22 | DRG 641 ==
LOC: EDBD 22:17 → M ED 22:17 → EEVIPCON 10-04 04:49 → M ED INP 10-04 04:49 → M MSPAV 10-04 05:46
PROVIDERS: ADMIT Student in an Organized Health Care Education/Training Program; ATTEND Student in an Organized Health Care Education/Training Program
DX: E87.1 Hypo-osmolality and hyponatremia (principal); F25.9 Schizoaffective disorder, unspecified; I10 Essential (primary) hypertension; R29.6 Repeated falls; G24.01 Drug induced subacute dyskinesia; E78.5 Hyperlipidemia, unspecified; Z79.899 Other long term (current) drug therapy; N40.0 Benign prostatic hyperplasia without lower urinary tract symptoms

== ENCOUNTER 2025-03-05 14:17 | Inpatient (IN) | payer MEDICARE, MEDICAID ==
[~2025-03-05] VITALS: Ht 188 cm; Wt 82.9 kg
[2025-03-05 14:47] LABS: VENOUS HCO3 27.2 MMOL/L (23.0-27.0); VENOUS O2 SATURATION 56.7 % (60.0-80.0); VENOUS PARTIAL PRESSURE CO2 39.9 mmHg (38.0-50.0); VENOUS PARTIAL PRESSURE O2 28.2 mmHg (30.0-50.0); VENOUS PH 7.451 UNITS (7.330-7.430); VENOUS STANDARD HCO3 26.1 MMOL/L; VENOUS TOTAL CO2 28.4 MMOL/L (24.0-28.0)
[2025-03-05 15:16] LABS: BASO % 0.1 % (0.0-1.0); EOS % 0.1 % (0.0-3.0); HEMATOCRIT 38.9 % (42.0-52.0); LYMPH # 1.2 10^3/uL (1.5-5.0); LYMPH % 16.2 % (24.0-44.0); MEAN CORPUSCULAR HEMOGLOBIN 31.6 pg (27.0-33.0); MEAN CORPUSCULAR VOLUME 87.8 fl (80.0-96.0); MONO # 0.9 10^3/uL (0.0-0.8); MONO % 12.5 % (2.0-8.0); NEUTROPHILS # 5.3 10^3/uL (1.5-8.5); NEUTROPHILS % 69.6 % (36.0-66.0); PLATELET COUNT, AUTOMATED 182 10^3/uL (150-450); RED BLOOD COUNT 4.43 10^6/uL (4.30-6.10); WHITE BLOOD COUNT 7.5 10^3/uL (4.0-10.0)
[2025-03-05 15:17] LABS: CK-MB VALUE MASS 2.6 NG/ML (<3.6); ETHYL ALCOHOL (ETHANOL) < 0.003 % (0.000-0.010)
[2025-03-05 15:19] LABS: SALICYLATE LEVEL < 3.0 MG/DL (<30)
[2025-03-05 15:20] LABS: ALBUMIN 3.6 G/DL (3.2-5.2); ALKALINE PHOSPHATASE 52 U/L (40-129); ALT/SGPT 33 U/L (7.0-40); AST/SGOT 12 U/L (<34); BILIRUBIN,DIRECT 0.8 MG/DL (<0.4); BILIRUBIN,TOTAL 2.1 MG/DL (0.3-1.2); BLOOD UREA NITROGEN 17 MG/DL (9-23); CALCIUM LEVEL 9.6 MG/DL (8.3-10.6); CARBON DIOXIDE LEVEL 26 MMOL/L (20-31); CHLORIDE LEVEL 91 MMOL/L (98-107); CPK CREATINE PHOSPHOKINASE 95 U/L (46-171); GLOMERULAR FILTRATION RATE > 60.0 (>49); GLUCOSE, FASTING 84 MG/DL (74-106); MB/CK RELATIVE INDEX 2.73 (< OR =4); SODIUM LEVEL 125 MMOL/L (136-145); TOTAL PROTEIN 6.9 G/DL (5.7-8.2)
[2025-03-05 15:21] LABS: THYROID STIMULATING HORMONE 1.528 uIU/ML (0.55-4.78)
[2025-03-05 15:34] LABS: KETONE, URINE AUTO RFX NEGATIVE (NEGATIVE); LEUKOCYTE ESTERASE UR AUTO RFX NEGATIVE (NEGATIVE); MUCUS, URINE RFX SMALL (NEGATIVE); NITRITE, URINE AUTO RFX NEGATIVE (NEGATIVE); RBC, URINE AUTO RFX 1 /HPF (0-3); SQUAM EPITHELIAL CELL UR AURFX 0 /HPF (0-6); WBC, URINE AUTO RFX 0 /HPF (0-3)
[2025-03-05 15:53] LABS: CK-MB VALUE MASS 1.9 NG/ML (<3.6)
[2025-03-05 15:56] LABS: MB/CK RELATIVE INDEX 1.86 (< OR =4)
[2025-03-05 16:24] LABS: VALPROIC ACID (DEPAKOTE) 62.2 UG/ML (50.0-100.0)
[2025-03-05] MEDS ORDERED: HOME MED LIST COMPLETE! XX SCH (17:05)
[2025-03-05] MEDS ORDERED: LORA-622 PO (17:05)
[2025-03-05 17:10] LABS: FREE T4 1.45 NG/DL (0.89-1.76)
[2025-03-05 17:23] LABS: CREATININE,RANDOM URINE 70.1 MG/DL
[2025-03-05 20:13] LABS: URIC ACID 5.5 MG/DL (3.7-9.2)
[2025-03-05 20:16] LABS: BLOOD UREA NITROGEN 15 MG/DL (9-23); CALCIUM LEVEL 9.4 MG/DL (8.3-10.6); CARBON DIOXIDE LEVEL 26 MMOL/L (20-31); CHLORIDE LEVEL 94 MMOL/L (98-107); GLOMERULAR FILTRATION RATE > 60.0 (>49); GLUCOSE, FASTING 92 MG/DL (74-106); SODIUM LEVEL 127 MMOL/L (136-145)
[2025-03-05] MEDS: LORATADINE 10 MG TAB PO SCH (20:28)
[2025-03-05] MEDS: traZODone 100 MG TAB PO SCH (20:28)
[2025-03-05] MEDS: TAMSULOSIN 0.4 MG CAP PO SCH (20:28)
[2025-03-05] MEDS: lisinopriL 5 MG TAB PO SCH (20:29)
[2025-03-05] MEDS: DIVALPROEX 500MG *ER* TAB PO SCH (20:29)
[2025-03-05] MEDS: ATORVASTATIN 10 MG TAB PO SCH (20:29)
[2025-03-05 22:36] LABS: BLOOD UREA NITROGEN 14 MG/DL (9-23); CALCIUM LEVEL 9.2 MG/DL (8.3-10.6); CARBON DIOXIDE LEVEL 27 MMOL/L (20-31); CHLORIDE LEVEL 94 MMOL/L (98-107); CREATININE FOR GFR 0.62 MG/DL (0.70-1.30); GLOMERULAR FILTRATION RATE > 60.0 (>49); GLUCOSE, FASTING 106 MG/DL (74-106); SODIUM LEVEL 127 MMOL/L (136-145)
[2025-03-06 02:07] LABS: BLOOD UREA NITROGEN 14 MG/DL (9-23); CALCIUM LEVEL 8.9 MG/DL (8.3-10.6); CARBON DIOXIDE LEVEL 26 MMOL/L (20-31); CHLORIDE LEVEL 93 MMOL/L (98-107); CREATININE FOR GFR 0.59 MG/DL (0.70-1.30); GLOMERULAR FILTRATION RATE > 60.0 (>49); GLUCOSE, FASTING 102 MG/DL (74-106); POTASSIUM SERUM 4.2 MMOL/L (3.5-5.1); SODIUM LEVEL 126 MMOL/L (136-145)
[2025-03-06 07:04] LABS: HEMATOCRIT 42.4 % (42.0-52.0); MEAN CORPUSCULAR HEMOGLOBIN 31.8 pg (27.0-33.0); MEAN CORPUSCULAR HGB CONC 35.4 g/dl (32.0-36.5); MEAN CORPUSCULAR VOLUME 89.8 fl (80.0-96.0); PLATELET COUNT, AUTOMATED 190 10^3/uL (150-450); RED BLOOD COUNT 4.72 10^6/uL (4.30-6.10); WHITE BLOOD COUNT 7.1 10^3/uL (4.0-10.0)
[2025-03-06 07:24] LABS: ALBUMIN 3.6 G/DL (3.2-5.2); ALKALINE PHOSPHATASE 53 U/L (40-129); ALT/SGPT 32 U/L (7.0-40); AST/SGOT 10 U/L (<34); BLOOD UREA NITROGEN 14 MG/DL (9-23); CALCIUM LEVEL 9.7 MG/DL (8.3-10.6); CARBON DIOXIDE LEVEL 28 MMOL/L (20-31); CHLORIDE LEVEL 94 MMOL/L (98-107); CREATININE FOR GFR 0.66 MG/DL (0.70-1.30); GLOMERULAR FILTRATION RATE > 60.0 (>49); GLUCOSE, FASTING 77 MG/DL (74-106); MAGNESIUM LEVEL 2.1 MG/DL (1.8-2.4); POTASSIUM SERUM 4.2 MMOL/L (3.5-5.1); SODIUM LEVEL 128 MMOL/L (136-145)
[2025-03-06] MEDS: SODIUM CHLORIDE 1 GM TAB PO SCH (10:30)
[2025-03-06 13:40] LABS: BLOOD UREA NITROGEN 17 MG/DL (9-23); CALCIUM LEVEL 9.4 MG/DL (8.3-10.6); CARBON DIOXIDE LEVEL 27 MMOL/L (20-31); CHLORIDE LEVEL 93 MMOL/L (98-107); CREATININE FOR GFR 0.69 MG/DL (0.70-1.30); GLOMERULAR FILTRATION RATE > 90.0 (>49); GLUCOSE, FASTING 96 MG/DL (74-106); POTASSIUM SERUM 3.7 MMOL/L (3.5-5.1); SODIUM LEVEL 128 MMOL/L (136-145)
[2025-03-06 18:34] LABS: BLOOD UREA NITROGEN 20 MG/DL (9-23); CARBON DIOXIDE LEVEL 25 MMOL/L (20-31); CHLORIDE LEVEL 93 MMOL/L (98-107); CREATININE FOR GFR 0.67 MG/DL (0.70-1.30); GLOMERULAR FILTRATION RATE > 90.0 (>49); GLUCOSE, FASTING 97 MG/DL (74-106); SODIUM LEVEL 125 MMOL/L (136-145)
[2025-03-06 20:50] VITALS: BP 128/81; TEMP 97.2; O2SAT 95
[2025-03-07] VITALS (8 sets, daily range): BP systolic 84–135; BP diastolic 49–77; TEMP 97.3–97.7; O2SAT 96–99
[2025-03-07 05:25] LABS: BLOOD UREA NITROGEN 16 MG/DL (9-23); CALCIUM LEVEL 9.3 MG/DL (8.3-10.6); CARBON DIOXIDE LEVEL 29 MMOL/L (20-31); CHLORIDE LEVEL 95 MMOL/L (98-107); CREATININE FOR GFR 0.71 MG/DL (0.70-1.30); GLOMERULAR FILTRATION RATE > 90.0 (>49); GLUCOSE, FASTING 98 MG/DL (74-106); POTASSIUM SERUM 4.8 MMOL/L (3.5-5.1); SODIUM LEVEL 131 MMOL/L (136-145)
[2025-03-07] MEDS ORDERED: SODI1TAB6 PO (10:58)
[2025-03-07 19:07] LABS: BLOOD UREA NITROGEN 21 MG/DL (9-23); CARBON DIOXIDE LEVEL 27 MMOL/L (20-31); CHLORIDE LEVEL 97 MMOL/L (98-107); CREATININE FOR GFR 0.72 MG/DL (0.70-1.30); GLOMERULAR FILTRATION RATE > 90.0 (>49); GLUCOSE, FASTING 107 MG/DL (74-106); POTASSIUM SERUM 4.1 MMOL/L (3.5-5.1); SODIUM LEVEL 132 MMOL/L (136-145)
[2025-03-08] VITALS: BP 126/72; TEMP 97.3; O2SAT 96
[2025-03-08 04:06] VITALS: BP 139/80; TEMP 97.3; O2SAT 99
[2025-03-08] MEDS: COSYNTROPIN 0.25 MG/ML 1ML VIAL IV ONE (07:07)
[2025-03-08 07:59] LABS: BLOOD UREA NITROGEN 20 MG/DL (9-23); CALCIUM LEVEL 8.8 MG/DL (8.3-10.6); CARBON DIOXIDE LEVEL 26 MMOL/L (20-31); CHLORIDE LEVEL 100 MMOL/L (98-107); CREATININE FOR GFR 0.66 MG/DL (0.70-1.30); GLOMERULAR FILTRATION RATE > 90.0 (>49); GLUCOSE, FASTING 88 MG/DL (74-106); POTASSIUM SERUM 4.6 MMOL/L (3.5-5.1); SODIUM LEVEL 134 MMOL/L (136-145)
[2025-03-08] MEDS: HALOPERIDOL DECANOATE 100 MG/ML 1ML VIAL IM ONE (10:45)
[2025-03-08 11:48] VITALS: BP 134/80; TEMP 97.5; O2SAT 98
[2025-03-08 20:14] VITALS: BP 129/76; TEMP 97.5; O2SAT 99
[2025-03-09 03:18] VITALS: BP 119/74; TEMP 97.6; O2SAT 100
[2025-03-09 12:00] VITALS: BP 124/71; TEMP 97.5; O2SAT 99
[2025-03-09 20:35] VITALS: BP 120/67
[2025-03-10 03:39] VITALS: BP 117/76; TEMP 97.2; O2SAT 99
[2025-03-10 12:00] VITALS: BP 121/68; TEMP 97.3; O2SAT 98
== END 2025-03-10 15:15 | disposition home health service (06) | DRG 645 ==
LOC: EDBD 14:17 → M ED 14:17 → M ED INP 14:18 → M MSPAV 03-06 20:46 → OBSVTOIN 03-07 10:55
PROVIDERS: ADMIT Student in an Organized Health Care Education/Training Program; ATTEND Student in an Organized Health Care Education/Training Program
DX: E22.2 Syndrome of inappropriate secretion of antidiuretic hormone (principal); I10 Essential (primary) hypertension; E78.5 Hyperlipidemia, unspecified; N40.0 Benign prostatic hyperplasia without lower urinary tract symptoms; F25.9 Schizoaffective disorder, unspecified; L42 Pityriasis rosea; R62.50 Unspecified lack of expected normal physiological development in childhood; Z79.899 Other long term (current) drug therapy

== ENCOUNTER 2025-03-23 22:40 | Inpatient (IN) | payer MEDICARE, MEDICAID ==
[~2025-03-23] VITALS: Ht 188 cm; Wt 85.4 kg
[~2025-03-23 22:40] MED LIST changes: +LORA-622 PO; +SODI1TAB6 PO
[2025-03-24 01:24] LABS: BASO % 0.4 % (0.0-1.0); EOS % 0.1 % (0.0-3.0); HEMATOCRIT 33.6 % (42.0-52.0); HEMOGLOBIN 12.3 g/dl (13.5-17.5); LYMPH # 1.4 10^3/uL (1.5-5.0); LYMPH % 19.7 % (24.0-44.0); MEAN CORPUSCULAR HEMOGLOBIN 32.4 pg (27.0-33.0); MEAN CORPUSCULAR VOLUME 88.4 fl (80.0-96.0); MONO # 0.7 10^3/uL (0.0-0.8); MONO % 10.3 % (2.0-8.0); NEUTROPHILS # 4.9 10^3/uL (1.5-8.5); NEUTROPHILS % 68.5 % (36.0-66.0); PLATELET COUNT, AUTOMATED 157 10^3/uL (150-450); WHITE BLOOD COUNT 7.1 10^3/uL (4.0-10.0)
[2025-03-24 01:25] LABS: MEAN CORPUSCULAR HGB CONC 36.6 g/dl (32.0-36.5)
[2025-03-24 01:26] LABS: LIPASE 42 U/L (12-53)
[2025-03-24 02:13] LABS: ALBUMIN 3.1 G/DL (3.2-5.2); ALKALINE PHOSPHATASE 60 U/L (40-129); ALT/SGPT 44 U/L (7.0-40); AST/SGOT 11 U/L (<34); BILIRUBIN,DIRECT 0.8 MG/DL (<0.4); BILIRUBIN,TOTAL 2.2 MG/DL (0.3-1.2); BLOOD UREA NITROGEN 12 MG/DL (9-23); CALCIUM LEVEL 8.6 MG/DL (8.3-10.6); CARBON DIOXIDE LEVEL 24 MMOL/L (20-31); CHLORIDE LEVEL 87 MMOL/L (98-107); CK-MB VALUE MASS 2.1 NG/ML (<3.6); CPK CREATINE PHOSPHOKINASE 97 U/L (46-171); CREATININE FOR GFR 0.54 MG/DL (0.70-1.30); GLOMERULAR FILTRATION RATE > 90.0 (>49); GLUCOSE, FASTING 99 MG/DL (74-106); MB/CK RELATIVE INDEX 2.16 (< OR =4); POTASSIUM SERUM 4.2 MMOL/L (3.5-5.1); SODIUM LEVEL 119 MMOL/L (136-145)
[2025-03-24] MEDS: NS (Normal Saline) 0.9% 1,000 ML IV ONE (02:15)
[2025-03-24 03:02] LABS: VALPROIC ACID (DEPAKOTE) 68.3 UG/ML (50.0-100.0)
[2025-03-24 03:26] LABS: CK-MB VALUE MASS 2.3 NG/ML (<3.6)
[2025-03-24] MEDS ORDERED: MOM 30ML SUSPENSION UDC PO PRN (03:35)
[2025-03-24] MEDS ORDERED: MAALOX 30 ML SUSP *UDC PO PRN (03:35)
[2025-03-24 03:37] LABS: MB/CK RELATIVE INDEX 2.44 (< OR =4)
[2025-03-24] MEDS: NS (Normal Saline) 0.9% 1,000 ML IV SCH (04:08)
[2025-03-24 06:40] LABS: INR 1.04; PARTIAL THROMBOPLASTIN TIME 34.6 SECONDS (24.8-34.2); PROTHROMBIN TIME 13.9 SECONDS (12.5-14.5)
[2025-03-24 06:51] LABS: BLOOD UREA NITROGEN 10 MG/DL (9-23); CALCIUM LEVEL 8.5 MG/DL (8.3-10.6); CARBON DIOXIDE LEVEL 26 MMOL/L (20-31); CHLORIDE LEVEL 91 MMOL/L (98-107); CREATININE FOR GFR 0.55 MG/DL (0.70-1.30); GLOMERULAR FILTRATION RATE > 90.0 (>49); GLUCOSE, FASTING 92 MG/DL (74-106); MAGNESIUM LEVEL 1.7 MG/DL (1.8-2.4); POTASSIUM SERUM 3.9 MMOL/L (3.5-5.1); SODIUM LEVEL 122 MMOL/L (136-145)
[2025-03-24 07:34] LABS: OSMOLALITY SERUM 249 MOSM/KG (280-301)
[2025-03-24] MEDS: DOCUSATE SODIUM 100MG CAPSULE PO SCH (09:00)
[2025-03-24] MEDS ORDERED: SODI1TAB6 PO (09:11)
[2025-03-24] MEDS ORDERED: SODI1TAB12 PO (09:11)
[2025-03-24] MEDS ORDERED: HOME MED LIST COMPLETE! XX SCH (09:15)
[2025-03-24 09:33] LABS: KETONE, URINE AUTO RFX NEGATIVE (NEGATIVE); LEUKOCYTE ESTERASE UR AUTO RFX NEGATIVE (NEGATIVE); NITRITE, URINE AUTO RFX NEGATIVE (NEGATIVE); RBC, URINE AUTO RFX 1 /HPF (0-3); SQUAM EPITHELIAL CELL UR AURFX 0 /HPF (0-6); WBC, URINE AUTO RFX 0 /HPF (0-3)
[2025-03-24 09:59] LABS: BLOOD UREA NITROGEN 9 MG/DL (9-23); CALCIUM LEVEL 8.6 MG/DL (8.3-10.6); CARBON DIOXIDE LEVEL 27 MMOL/L (20-31); CHLORIDE LEVEL 91 MMOL/L (98-107); CREATININE FOR GFR 0.54 MG/DL (0.70-1.30); GLOMERULAR FILTRATION RATE > 90.0 (>49); GLUCOSE, FASTING 106 MG/DL (74-106); POTASSIUM SERUM 3.9 MMOL/L (3.5-5.1); SODIUM LEVEL 124 MMOL/L (136-145)
[2025-03-24 10:18] LABS: POTASSIUM RANDOM URINE 6.9 MMOL/L
[2025-03-24] MEDS: ENOXAPARIN 40MG/0.4ML SYRINGE (J1650 PER 10MG) SC SCH (11:09)
[2025-03-24] MEDS: SODIUM CHLORIDE 1 GM TAB PO SCH (11:09)
[2025-03-24 13:37] VITALS: BP 146/74; TEMP 98.1; O2SAT 99
[2025-03-24 16:00] VITALS: BP 133/75; TEMP 97.9; O2SAT 100
[2025-03-24 16:10] LABS: BLOOD UREA NITROGEN 9 MG/DL (9-23); CALCIUM LEVEL 9.1 MG/DL (8.3-10.6); CARBON DIOXIDE LEVEL 28 MMOL/L (20-31); CHLORIDE LEVEL 95 MMOL/L (98-107); CREATININE FOR GFR 0.68 MG/DL (0.70-1.30); GLOMERULAR FILTRATION RATE > 90.0 (>49); GLUCOSE, FASTING 86 MG/DL (74-106); POTASSIUM SERUM 4.3 MMOL/L (3.5-5.1); SODIUM LEVEL 128 MMOL/L (136-145)
[2025-03-24] MEDS: D5W 1,000 ML IV SCH (16:53)
[2025-03-24 19:53] VITALS: BP 128/70; TEMP 98.1; O2SAT 97
[2025-03-24] MEDS: TAMSULOSIN 0.4 MG CAP PO SCH (20:35)
[2025-03-24] MEDS: DIVALPROEX 500MG *ER* TAB PO SCH (20:35)
[2025-03-24] MEDS: ATORVASTATIN 10 MG TAB PO SCH (20:36)
[2025-03-24] MEDS: traZODone 100 MG TAB PO SCH (20:36)
[2025-03-24] MEDS: LORATADINE 10 MG TAB PO SCH (20:36)
[2025-03-24 21:57] LABS: BLOOD UREA NITROGEN 9 MG/DL (9-23); CALCIUM LEVEL 8.6 MG/DL (8.3-10.6); CARBON DIOXIDE LEVEL 27 MMOL/L (20-31); CHLORIDE LEVEL 94 MMOL/L (98-107); CREATININE FOR GFR 0.68 MG/DL (0.70-1.30); GLOMERULAR FILTRATION RATE > 90.0 (>49); GLUCOSE, FASTING 86 MG/DL (74-106); POTASSIUM SERUM 4.2 MMOL/L (3.5-5.1); SODIUM LEVEL 127 MMOL/L (136-145)
[2025-03-24 23:15] VITALS: BP 150/81; TEMP 97.9; O2SAT 99
[2025-03-24] MEDS: MAGNESIUM OXIDE 400MG TAB (MAG-OX) PO ONE (23:39)
[2025-03-25 03:40] VITALS: BP 120/79; TEMP 97.9; O2SAT 96
[2025-03-25 04:01] LABS: HEMATOCRIT 36.6 % (42.0-52.0); HEMOGLOBIN 13.1 g/dl (13.5-17.5); MEAN CORPUSCULAR HEMOGLOBIN 32.3 pg (27.0-33.0); MEAN CORPUSCULAR HGB CONC 35.8 g/dl (32.0-36.5); MEAN CORPUSCULAR VOLUME 90.4 fl (80.0-96.0); PLATELET COUNT, AUTOMATED 153 10^3/uL (150-450); RED BLOOD COUNT 4.05 10^6/uL (4.30-6.10); WHITE BLOOD COUNT 5.9 10^3/uL (4.0-10.0)
[2025-03-25 04:24] LABS: VALPROIC ACID (DEPAKOTE) 58.9 UG/ML (50.0-100.0)
[2025-03-25 04:27] LABS: ALBUMIN 3.1 G/DL (3.2-5.2); ALKALINE PHOSPHATASE 60 U/L (40-129); ALT/SGPT 42 U/L (7.0-40); AST/SGOT 11 U/L (<34); BILIRUBIN,TOTAL 1.7 MG/DL (0.3-1.2); BLOOD UREA NITROGEN 10 MG/DL (9-23); CALCIUM LEVEL 8.9 MG/DL (8.3-10.6); CARBON DIOXIDE LEVEL 26 MMOL/L (20-31); CHLORIDE LEVEL 94 MMOL/L (98-107); CREATININE FOR GFR 0.62 MG/DL (0.70-1.30); GLOMERULAR FILTRATION RATE > 90.0 (>49); GLUCOSE, FASTING 109 MG/DL (74-106); MAGNESIUM LEVEL 1.8 MG/DL (1.8-2.4); SODIUM LEVEL 127 MMOL/L (136-145)
[2025-03-25 08:00] VITALS: BP 122/82; TEMP 98.4; O2SAT 98
[2025-03-25] MEDS: MAGNESIUM OXIDE 400MG TAB (MAG-OX) PO SCH (09:54)
[2025-03-25] MEDS: DIVALPROEX 250MG TAB PO SCH (09:55)
[2025-03-25 10:13] LABS: BLOOD UREA NITROGEN 8 MG/DL (9-23); CARBON DIOXIDE LEVEL 26 MMOL/L (20-31); CHLORIDE LEVEL 94 MMOL/L (98-107); CREATININE FOR GFR 0.55 MG/DL (0.70-1.30); GLOMERULAR FILTRATION RATE > 90.0 (>49); GLUCOSE, FASTING 100 MG/DL (74-106); POTASSIUM SERUM 3.9 MMOL/L (3.5-5.1); SODIUM LEVEL 127 MMOL/L (136-145)
[2025-03-25 12:00] VITALS: BP 121/74; TEMP 98.6; O2SAT 98
[2025-03-25 14:30] LABS: BLOOD UREA NITROGEN 9 MG/DL (9-23); CALCIUM LEVEL 9.1 MG/DL (8.3-10.6); CARBON DIOXIDE LEVEL 28 MMOL/L (20-31); CHLORIDE LEVEL 94 MMOL/L (98-107); CREATININE FOR GFR 0.56 MG/DL (0.70-1.30); GLOMERULAR FILTRATION RATE > 90.0 (>49); GLUCOSE, FASTING 109 MG/DL (74-106); POTASSIUM SERUM 4.3 MMOL/L (3.5-5.1); SODIUM LEVEL 128 MMOL/L (136-145)
[2025-03-25 16:00] VITALS: TEMP 98.2; O2SAT 96
[2025-03-25 20:00] VITALS: BP 126/83; TEMP 97.6; O2SAT 99
[2025-03-25 22:21] LABS: BLOOD UREA NITROGEN 13 MG/DL (9-23); CALCIUM LEVEL 8.8 MG/DL (8.3-10.6); CARBON DIOXIDE LEVEL 25 MMOL/L (20-31); CHLORIDE LEVEL 94 MMOL/L (98-107); CREATININE FOR GFR 0.63 MG/DL (0.70-1.30); GLOMERULAR FILTRATION RATE > 90.0 (>49); GLUCOSE, FASTING 109 MG/DL (74-106); POTASSIUM SERUM 4.2 MMOL/L (3.5-5.1); SODIUM LEVEL 126 MMOL/L (136-145)
[2025-03-26] VITALS: BP 151/81; TEMP 98.1; O2SAT 97
[2025-03-26 04:00] VITALS: BP 148/74; TEMP 98.1; O2SAT 96
[2025-03-26 05:57] LABS: BASO % 0.5 % (0.0-1.0); EOS # 0.1 10^3/uL (0.0-0.5); EOS % 0.8 % (0.0-3.0); HEMATOCRIT 38.9 % (42.0-52.0); HEMOGLOBIN 13.7 g/dl (13.5-17.5); LYMPH # 2.1 10^3/uL (1.5-5.0); LYMPH % 33.1 % (24.0-44.0); MEAN CORPUSCULAR HEMOGLOBIN 31.9 pg (27.0-33.0); MEAN CORPUSCULAR HGB CONC 35.2 g/dl (32.0-36.5); MEAN CORPUSCULAR VOLUME 90.7 fl (80.0-96.0); MONO # 0.5 10^3/uL (0.0-0.8); MONO % 7.9 % (2.0-8.0); NEUTROPHILS # 3.7 10^3/uL (1.5-8.5); NEUTROPHILS % 56.6 % (36.0-66.0); PLATELET COUNT, AUTOMATED 163 10^3/uL (150-450); RED BLOOD COUNT 4.29 10^6/uL (4.30-6.10); WHITE BLOOD COUNT 6.4 10^3/uL (4.0-10.0)
[2025-03-26 06:21] LABS: BLOOD UREA NITROGEN 14 MG/DL (9-23); CALCIUM LEVEL 8.9 MG/DL (8.3-10.6); CARBON DIOXIDE LEVEL 25 MMOL/L (20-31); CHLORIDE LEVEL 94 MMOL/L (98-107); CREATININE FOR GFR 0.57 MG/DL (0.70-1.30); GLOMERULAR FILTRATION RATE > 90.0 (>49); GLUCOSE, FASTING 92 MG/DL (74-106); POTASSIUM SERUM 4.1 MMOL/L (3.5-5.1); SODIUM LEVEL 127 MMOL/L (136-145)
[2025-03-26 08:00] VITALS: BP 124/71; TEMP 97.9; O2SAT 96
[2025-03-26 12:00] VITALS: BP 133/70; TEMP 98.6; O2SAT 95
[2025-03-26] MEDS ORDERED: SODI1TAB6 PO (13:04)
[2025-03-26 16:00] VITALS: BP 134/71; TEMP 98.1; O2SAT 96
[2025-03-26] MEDS: SODIUM CHLORIDE 1 GM TAB PO SCH (16:16)
[2025-03-26 20:00] VITALS: BP 137/79; TEMP 98; O2SAT 99
[2025-03-26] MEDS: ACETAMINOPHEN 325 MG TAB PO PRN (20:30)
[2025-03-27] VITALS (7 sets, daily range): BP systolic 123–152; BP diastolic 58–89; TEMP 97.4–98.8; O2SAT 97–98
[2025-03-27 05:50] LABS: HEMATOCRIT 39.6 % (42.0-52.0); MEAN CORPUSCULAR HEMOGLOBIN 32.3 pg (27.0-33.0); MEAN CORPUSCULAR HGB CONC 35.4 g/dl (32.0-36.5); MEAN CORPUSCULAR VOLUME 91.2 fl (80.0-96.0); PLATELET COUNT, AUTOMATED 168 10^3/uL (150-450); RED BLOOD COUNT 4.34 10^6/uL (4.30-6.10); WHITE BLOOD COUNT 5.7 10^3/uL (4.0-10.0)
[2025-03-28 03:48] VITALS: BP 109/75; TEMP 98.8; O2SAT 95
[2025-03-28 07:52] VITALS: BP 136/88; TEMP 98.4; O2SAT 97
[2025-03-29] MEDS ORDERED: HALOPERIDOL DECANOATE 100 MG/ML 1ML VIAL IM SCH (09:00)
== END 2025-03-28 17:55 | disposition home or self-care (01) | DRG 641 ==
LOC: M ED 22:40 → M ED INP 03-24 03:33 → M MSPAV 03-24 13:39
PROVIDERS: ADMIT Family Medicine; ATTEND Student in an Organized Health Care Education/Training Program
DX: E87.1 Hypo-osmolality and hyponatremia (principal); F39 Unspecified mood [affective] disorder; I10 Essential (primary) hypertension; N40.0 Benign prostatic hyperplasia without lower urinary tract symptoms; F25.9 Schizoaffective disorder, unspecified; E78.5 Hyperlipidemia, unspecified; F79 Unspecified intellectual disabilities; R29.6 Repeated falls; Z79.899 Other long term (current) drug therapy